=== PATIENT | male | born 1955 | race Caucasian/White ===

== ENCOUNTER 2017-02-17 06:57 | Emergency (ER) | payer SELFPAY ==
[2017-02-17] MEDS ORDERED: NITROGLYCERIN 0.4 MG TAB.SUBL SUBLINGUAL ONE (07:24)
[2017-02-17 07:25] LABS: BASOPHIL# 0.1 X 10^3uL (0.0-0.1); BASOPHILS 0.8 % (0.0-2.0); EOSINOPHILS 3.5 % (0.0-6.0); EOSINOPHILS# 0.3 X 10^3uL (0.0-0.4); HEMATOCRIT 50.3 % (42.0-54.0); HEMOGLOBIN 17.5 g/dL (14.0-18.0); LYMPHOCYTES 30.2 % (20.0-40.0); LYMPHOCYTES# 2.2 X 10^3uL (0.8-3.8); MEAN CELL VOLUME 86.7 fL (80.0-100.0); MEAN CORPUS. HGB CONCENTRATION 34.9 g/dL (32.0-36.0); MEAN CORPUSCULAR HEMOGLOBIN 30.3 pg (29.0-35.0); MEAN PLATELET VOLUME 8.7 fL (7.4-10.4); MONOCYTES 7.6 % (2.0-10.0); MONOCYTES# 0.6 X 10^3uL (0.2-1.0); NEUTROPHILS 57.9 % (54.0-75.0); NEUTROPHILS# 4.1 X 10^3uL (2.6-6.7); PLATELET COUNT 230 X 10^3uL (130-440); RED BLOOD COUNT 5.79 X 10^6uL (4.20-6.10); RED CELL DISTRIBUTION WIDTH 12.1 % (11.5-14.5); WHITE BLOOD COUNT 7.4 X 10^3uL (3.9-10.7)
[2017-02-17 07:31] LABS: BLOOD UREA NITROGEN 21 mg/dL (9-20); CALCIUM 10.3 mg/dL (8.4-10.2); CHLORIDE 110 mmol/L (98-107); EST GLOMERULAR FILTRATION RATE > 60 mL/min; GLUCOSE 152 mg/dL (70-100); MAGNESIUM 2.1 mg/dL (1.6-2.3); POTASSIUM 4.3 mmol/L (3.5-5.1); SODIUM 141 mmol/L (137-145)
[2017-02-17 07:45] LABS: TROPONIN I < 0.012 ng/mL (0.00-0.034)
--- NOTE | 2017-02-17 08:35 | RADIOLOGY REPORT ---
A limited single portable view of the chest, without prior films for comparison , demonstrates the heart and vessels to be unremarkable. Lung melgar are clear. No infiltrate, fluid or pneumothorax is seen. IMPRESSION: Unremarkable limited single portable view of the chest. MTDD
[2017-02-17] MEDS ORDERED: HEPARIN SOD PORCINE 5,000 UNITS/ML VIAL ONE (10:38)
[2017-02-17] MEDS ORDERED: HEPARIN SOD PORCINE IV ONE (10:39)
[2017-02-17] MEDS ORDERED: D5W IV ONE (10:39)
--- NOTE | 2017-02-17 11:11 | ER PHYSICIAN DOCUMENTATION ---
Physician Documentation [facility] Name:Wolfgang Bishop Age:61 yrs Sex:Male :1955 Arrival Date:02/17/2017 Time:06:57 BedTrauma-C Private MD:Russell Graff ED, John Disposition: 02/17/17 10:47 Transfer ordered to [facility]. Diagnosis is Myocardial Infarction - non ST elevation. - Reason for transfer: Specialty. - Accepting physician is Dr. Alfaro. - Condition is Serious. - Problem is new. - Symptoms are unchanged. COBRA Form completed? Yes Transfer - Mode of Transportation Ambulance HPI: 02/17 07:38 This 61 yrs old Male presents to ER via Private Vehicle with complaints of jm Chest Pain. 07:38 The patient or guardian reports chest pain that is located primarily in the substernal jm area. Onset: 6 month(s) ago, and became worse today, yesterday. The pain radiates to both arms. There has been no movement of pain. Associated signs and symptoms: Pertinent positives: dizziness, shortness of breath. The chest pain is described as a heaviness, a pressure. Duration: The patient or guardian reports a single episode, that is still ongoing, but improving. Modifying factors: the symptoms are aggravated by exertion. Severity of pain: in the emergency department the pain is a 7 / 10. Risk factors for coronary artery disease include: This patient has a family history of coronary artery disease. The patient has experienced similar episodes in the past. The patient has not recently seen a physician. Pt's had on and off CP for the past 6 months always set off by exertion . Historical: - Allergies: No known drug Allergies; - Home Meds: 1. Flomax Oral - PMHx: BPH; Hernia- no surgery yet; - PSHx: Appendectomy; - Tetanus: < 10 years. - Ebola Screening: : Patient negative for fever greater than or equal to 101.5 degrees Fahrenheit, and additional compatible Ebola Virus Disease symptoms. Patient denies exposure to infectious person. Patient denies travel to an Ebola-affected area in the 21 days before illness onset. No symptoms or risks identified at this time. . - Family history: Father has/had cardiac disorder, Brother has/had cardiac disorder. - Immunization history: Flu Vaccine unknown. - Social history: Smoking status: Patient states was never smoker of tobacco. ROS: 07:44 Constitutional: Negative for fatigue, fever. jm 07:44 ENT: Negative for rhinorrhea, sinus congestion, sinus pain, sore throat. 07:44 Neck: Negative for swelling, acute changes. 07:44 Cardiovascular: Positive for chest pain. 07:44 Respiratory: Positive for shortness of breath. 07:44 Abdomen/GI: Negative for abdominal pain, nausea, vomiting, diarrhea. 07:44 Back: Negative for pain with movement, radiated pain. 07:44 MS/extremity: Negative for rash, swelling. 07:44 Skin: Negative for rash, swelling. 07:44 Neuro: Negative for dizziness, numbness. 07:44 Psych: Negative for drug dependence, alcohol dependence. 07:44 All other systems are negative. Exam: 07:46 Constitutional: The patient appears alert, awake, obese. 07:46 Eyes: Periorbital structures: appear normal, Conjunctiva: normal. 07:46 ENT: Mouth: is normal, Dental exam: normal. 07:46 Neck: Thyroid: appears normal, Trachea: is midline with no obvious abnormalities. 07:46 Cardiovascular: Rate: normal, Rhythm: regular. 07:46 Respiratory: Respirations: normal, Breath sounds: are normal. 07:46 Abdomen/GI: Bowel sounds: normal, Palpation: abdomen is soft and non-tender. 07:46 Musculoskeletal/extremity: Pulses: are normal with no appreciated deficits, Sensation intact. 07:46 Skin: Appearance: Color: pink, no rash present. 07:46 Neuro: Mentation: is normal, Memory: is normal. 07:46 Psych: Behavior/mood is pleasant, cooperative, Affect is calm. Vital Signs: 07:00 BP 166 / 96 (auto/); tg 07:00 Pulse 86 MON; Resp 13; Pulse Ox 95% ; Weight 106.14 kg; Height 5 ft. 11 in. (180.34 tg cm); Pain 3/10; 07:26 Pain 1/10; tg 07:30 BP 136 / 87 (auto/); tg 07:36 Pulse 83 MON; Resp 22; Pulse Ox 92% ; tg 08:00 BP 127 / 73 (auto/); tg 08:01 Pulse 79 MON; Resp 15; Pulse Ox 92% ; tg 08:11 Pain 0/10; tg 10:00 BP 135 / 79 (auto/); tg 10:01 Pulse 64 MON; Resp 18; Pulse Ox 92% ; tg 10:43 BP 164 / 97 (auto/); tg 10:46 Pulse 73 MON; Resp 18; Pulse Ox 94% ; tg 11:01 BP 165 / 79 (auto/); tg 11:01 Pulse 74 MON; Resp 14; Pulse Ox 95% ; tg 07:00 Body Mass Index 32.64 (106.14 kg, 180.34 cm) tg MDM: 07:26 Patient medically screened. jm 10:42 Differential diagnosis: acute myocardial infarction, anxiety, stable angina. Patient hari took aspirin in the Emergency Department. Data reviewed: vital signs, nurses notes, lab test result(s), EKG, radiologic studies, and as a result, I will *Transfer Patient. Test interpretation: by ED physician or midlevel provider: plain radiologic studies, ECG. Counseling: I had a detailed discussion with the patient and/or guardian regarding: the historical points, exam findings, and any diagnostic results supporting the discharge/admit diagnosis, lab results, radiology results, the need to transfer to another facility. ECG:. Medication response: The patient's symptoms have improved, Nitro x 1 relieved pain. Physician consultation: Annalee Martinez regarding patient's condition, need to come to ED to see patient, and will see patient immediately, after a discussion of the case, a recommendation for transfer for higher level of care is made, would like further tests performed, echocardiogram, Pt's 2nd trop came back positive. Dr. Martinez would like transfer to [facility] for a cath. . 11:10 EKG attached 02/17 07:27 Order name: CBC AUTO DIF, MDIF/RMOR IF IND; Complete Time: 07:49 EDMS 02/17 07:46 Order name: BASIC METABOLIC PANEL; Complete Time: 07:49 EDMS 02/17 07:46 Order name: MAGNESIUM; Complete Time: 07:49 EDMS 02/17 07:46 Order name: TROPONIN I; Complete Time: 07:49 EDMS 02/17 10:21 Order name: TROPONIN I; Complete Time: 10:24 EDMS 02/17 09:09 Order name: CHEST; SINGLE VIEW [id number]; Complete Time: 10:24 EDMS 02/17 07:08 Order name: 12-lead EKG; Complete Time: 07:09 tg 02/17 07:08 Order name: Iv Saline Lock; Complete Time: 07: tg 02/17 07:08 Order name: Place Patient On Monitor; Complete Time: : tg 02/17 07:08 Order name: Pulse Ox Continuous; Complete Time: 07: tg EC:42 Rhythm is regular. QRS [place] is Normal. AL interval is normal. QRS interval is normal. jm QT interval is normal. Q waves are Present in leads II, III, aVF. No ST changes noted. Dispensed Medications: 07:12 Drug: Aspirin 81 mg, 4 tabs, total of 324 mg - Aspirin 81 mg; Route: PO; tg 07:23 Follow up: Response: No adverse reaction tg 07:19 Drug: Nitroglycerin 0.4 mg; Route: Sublingual; tg 07:26 Follow up: Pain 1/10 Adult; Response: Pain is decreased; Pain had increassed to 7/10 tg right at the time of administration of nitro SL 10:45 Drug: heparin 60 units/kg; Route: IVP; Site: right antecubital; lpr 10:49 Drug: heparin 12 units/kg/hr; Route: IV; Rate: calculated rate; Site: right antecubital;lpr Signatures: Brennen Perez RN RN tg Malena Bianchi RN RN nf Meyer, John, MD MD jm Roberts, Leslie, RN RN lpr
--- NOTE | 2017-02-17 11:11 | ER NURSING DOCUMENTATION ---
Nurse's Notes [facility] Name:Wolfgang Bishop Age:61 yrs Sex:Male :1955 Arrival Date:02/17/2017 Time:06:57 BedTrauma-C Private MD:Russell Graff Diagnosis:Myocardial Infarction - non ST elevation Presentation: 02/17 07:07 Acuity: ARELIS 2 tg 07:10 Notified ED Physician of patient's arrival and CC Que Zamora notified. tg 07:15 Presenting complaint: Patient states: midsternal chest pain, burning, began 45 min ago. tg Off and on for the past week. Tingling hands, slight SOB, felt sweaty SPEECH LANGUAGE PATHOLOGIST TRAVEL. Transition of care: patient was not received from another setting of care. AIR CAT ACTIVATION no. Asprin Given Given in ED. 07:15 Method Of Arrival: Private Vehicle tg Triage Assessment: 07:21 General: Appears in no apparent distress, Behavior is cooperative. Pain: Complains of tg pain in mid-sternal area Quality of pain is described as burning, Pain began 1 hour ago Is episodic. Neuro: Level of Consciousness is awake, alert. Cardiovascular: Capillary refill < 3 seconds Rhythm is sinus rhythm. Respiratory: Respiratory effort is even, unlabored. GI: Denies nausea. Derm: Skin is pink, warm & dry. Musculoskeletal:. Historical: - Allergies: No known drug Allergies; - Home Meds: 1. Flomax Oral - PMHx: BPH; Hernia- no surgery yet; - PSHx: Appendectomy; - Tetanus: < 10 years. - Ebola Screening: : Patient negative for fever greater than or equal to 101.5 degrees Fahrenheit, and additional compatible Ebola Virus Disease symptoms. Patient denies exposure to infectious person. Patient denies travel to an Ebola-affected area in the 21 days before illness onset. No symptoms or risks identified at this time. . - Family history: Father has/had cardiac disorder, Brother has/had cardiac disorder. - Immunization history: Flu Vaccine unknown. - Social history: Smoking status: Patient states was never smoker of tobacco. Screenin:23 Infectious Disease Risk Unable to Obtain. Abuse screen: Denies threats or abuse. Denies tg injuries from another. Nutritional screening: No deficits noted. Assessment: 08:09 Reassessment: Per Dr. Grey, pt may leave the ED for about 45 minutes to get his cell tg phone. Pt is pain free, symptom free, and has been instructed to call 911 if symptoms return. Pt verbalized understanding. . 09:00 Reassessment: Pt is back in ED trauma C, no symptoms or complaints. Pt reports he did tg have another small amount of pain while ambulating. . 09:42 Reassessment: denies needs, awaiting stress test. nf 10:22 Reassessment: elevated repeat troponin result received from lab; Dr Grey notified of tg result and cardiology clinic notified of result and stress test cancelled. Vital Signs: 07:00 BP 166 / 96 (auto/); tg 07:00 Pulse 86 MON; Resp 13; Pulse Ox 95% ; Weight 106.14 kg; Height 5 ft. 11 in. (180.34 tg cm); Pain 3/10; 07:26 Pain 1/10; tg 07:30 BP 136 / 87 (auto/); tg 07:36 Pulse 83 MON; Resp 22; Pulse Ox 92% ; tg 08:00 BP 127 / 73 (auto/); tg 08:01 Pulse 79 MON; Resp 15; Pulse Ox 92% ; tg 08:11 Pain 0/10; tg 10:00 BP 135 / 79 (auto/); tg 10:01 Pulse 64 MON; Resp 18; Pulse Ox 92% ; tg 10:43 BP 164 / 97 (auto/); tg 10:46 Pulse 73 MON; Resp 18; Pulse Ox 94% ; tg 11:01 BP 165 / 79 (auto/); tg 11:01 Pulse 74 MON; Resp 14; Pulse Ox 95% ; tg 07:00 Body Mass Index 32.64 (106.14 kg, 180.34 cm) tg ED Course: 06:58 Patient arrived in ED. ds 06:58 Russell Graff DO is Private Physician. ds 06:58 EKG done. (by ED staff). Reviewed by Jon Grey MD. tg 07:04 Inserted saline lock: 20 gauge in right antecubital area and blood collected. em1 07:07 Triage completed. tg 07:10 Port Xray Completed. sav 07:22 Arm band placed on. tg 07:23 Valuables Remains with patient. bus driver/monitor on. Pulse ox on. NIBP On - RN tg Monitoring Only. Verbal reassurance given. Pillow given. 07:26 Jon Grey MD is Attending Physician. hari 09:35 Labs drawn. (by ED staff). Sent per order to lab. repeat troponin. nf 09:58 Brennen Perez, RN is Primary Nurse. tg 11:10 EKG attached nf Administered Medications: 07:12 Drug: Aspirin 81 mg, 4 tabs, total of 324 mg - Aspirin 81 mg; Route: PO; tg 07:23 Follow up: Response: No adverse reaction tg 07:19 Drug: Nitroglycerin 0.4 mg; Route: Sublingual; tg 07:26 Follow up: Pain 1/10 Adult; Response: Pain is decreased; Pain had increassed to 7/10 tg right at the time of administration of nitro SL 10:45 Drug: heparin 60 units/kg; Route: IVP; Site: right antecubital; lpr 10:49 Drug: heparin 12 units/kg/hr; Route: IV; Rate: calculated rate; Site: right antecubital;lpr Intake: Outcome: 10:47 ER care complete, transfer ordered by . jm 11:11 Patient left the ED. nf Signatures: Brennen Perez, RN RN Malena Bianchi RN RN nf Srot, Aminata, Reg Reg ds Jon Grey MD MD jm Roberts, Leslie, RN RN lpr Katya Alvares [facility], [facility] em1
== END 2017-02-17 11:11 | disposition short-term general hospital (02) ==
LOC: ER 06:57
DX: I21.4 Non-ST elevation (NSTEMI) myocardial infarction (principal); R06.02 Shortness of breath; R42 Dizziness and giddiness; Z82.49 Family history of ischemic heart disease and other diseases of the circulatory system; Z99.89 Dependence on other enabling machines and devices; Z74.3 Need for continuous supervision
CPT/HCPCS: 71010; 80048; 83735; 84484; 85025; 93005; 93308; 96374; 99285; A0425; A0426; J1644

== ENCOUNTER → 2017-02-26 | Emergency (ER) | payer SELFPAY ==
[~2017-02-26] MED LIST: ACETAMINOPHEN 325 MG TABLET PO PRN; BENZONATATE 100 MG CAPSULE PO PRN; DILTIAZEM HCL 125 MG/25 ML VIAL IV ONE; ENOXAPARIN SODIUM 40 MG/0.4 ML SYR SUBCUT SCH; GUAIFENESIN ER 600 MG TABLET PO SCH; HOME MEDICATION LIST NEEDED 1 EA EACH MC ONE; IPRATROPIUM/ALBUTEROL 0.5/3 MG 3 ML AMPUL.NEB INHALATION PRN; LEVALBUTEROL 1.25 MG/3 ML VIAL.NEB INHALATION PRN; LORazepam 0.5 MG TABLET PO PRN; MAG-AL PLUS XS SUSP 30 ML UDC PO PRN; NORMAL SALINE 1,000 ML IV SCH; NORMAL SALINE 100 ML IV ONE; POLYETHYLENE GLYCOL 3350 17 GM POWD.PACK PO PRN; TUSSIONEX PENNKINETIC SUSP 5 ML UDC ONE
[2017-02-26 18:31] LABS: BASOPHIL# 0.2 X 10^3uL (0.0-0.1); BASOPHILS 1.3 % (0.0-2.0); EOSINOPHILS 2.7 % (0.0-6.0); EOSINOPHILS# 0.5 X 10^3uL (0.0-0.4); HEMATOCRIT 40.4 % (42.0-54.0); HEMOGLOBIN 14.1 g/dL (14.0-18.0); LYMPHOCYTES# 2.2 X 10^3uL (0.8-3.8); MEAN CELL VOLUME 87.7 fL (80.0-100.0); MEAN CORPUS. HGB CONCENTRATION 34.9 g/dL (32.0-36.0); MEAN CORPUSCULAR HEMOGLOBIN 30.6 pg (29.0-35.0); MEAN PLATELET VOLUME 8.4 fL (7.4-10.4); MONOCYTES 7.5 % (2.0-10.0); MONOCYTES# 1.4 X 10^3uL (0.2-1.0); NEUTROPHILS# 14.2 X 10^3uL (2.6-6.7); PLATELET COUNT 332 X 10^3uL (130-440); RED CELL DISTRIBUTION WIDTH 12.4 % (11.5-14.5); WHITE BLOOD COUNT 18.5 X 10^3uL (3.9-10.7)
--- NOTE | 2017-02-26 18:32 | RADIOLOGY REPORT ---
HISTORY: Shortness of breath. TECHNIQUE: One view of the chest is submitted. There is no prior study available for comparison. FINDINGS: Sternotomy wires are seen at the midline. Current exam is acquired at low lung volumes, limiting evaluation of the cardiac and mediastinal silh ouettes. The costophrenic recesses are sharp. Lungs show left basilar interstitial opacity. There is no significant pneumothorax. Soft tissues and visualized osseous structures are intact. IMPRESSION: 1. Hypoventilatory change, with left basilar consolidation. Follow-up is recommended. Final Electronic Signature: This report was electronically signed by Martín Fiore MD on 02/26/2017 6: 29 PM. shumes /
[2017-02-26 18:33] LABS: INR 1.1
[2017-02-26 18:34] LABS: ALBUMIN 4.2 g/dL (3.5-5.0); ALKALINE PHOSPHATASE 78 U/L (38-126); ALT 69 U/L (21-72); AST 46 U/L (17-59); BILIRUBIN, DIRECT 0.5 mg/dL (0.0-0.4); BILIRUBIN, TOTAL 1.6 mg/dL (0.2-1.3); BLOOD UREA NITROGEN 21 mg/dL (9-20); CALCIUM 10.5 mg/dL (8.4-10.2); CHLORIDE 102 mmol/L (98-107); EST GLOMERULAR FILTRATION RATE > 60 mL/min; GLUCOSE 124 mg/dL (70-100); MAGNESIUM 2.5 mg/dL (1.6-2.3); POTASSIUM 4.4 mmol/L (3.5-5.1); SODIUM 135 mmol/L (137-145); TOTAL PROTEIN 7.7 g/dL (6.3-8.2)
[2017-02-26 18:45] LABS: NEUTROPHILS 76.5 % (54.0-75.0); TROPONIN I 0.027 ng/mL (0.00-0.034)
[2017-02-26 18:50] LABS: FREE T4 1.77 ng/dL (0.78-2.19)
--- NOTE | 2017-02-26 19:35 | CT REPORT ---
HISTORY: Chest pain and shortness of breath. Recent thoracotomy. COMPARISON: Chest x-ray February 26, 2017. TECHNIQUE: This examination was performed using automated exposure control, adjustment of mA or kV according to patient size, and/or use of iterative reconstruction technique. Axial CT imaging from the thoracic i nlet through the upper abdomen following administration of IV contrast during peak opacification of t he pulmonary arteries, multiplanar reformatted and 3-D images are evaluated. 100cc Isovue 370 contrast. FINDINGS: There are bibasilar infiltrates and a small left-sided effusion. There is also very small left apical pneumothorax. Likely postsurgical. The patient is status post recent thoracotomy with postoperative changes in the superior mediastinum. No pathologic lymphadenopathy or pericardial effusion. No pulmonary embolus identified. No thyroid mass or hiatal hernia. IMPRESSION: 1. Status post recent thoracotomy. Small postoperative left apical pneumothorax. 2. Small bibasilar infiltrates and a small left pleural effusion. Final Electronic Signature: This report was electronically signed by Ryan Mckeon MD on 02/26/2017 7:33 PM. sross /
--- NOTE | 2017-02-26 21:38 | HISTORY AND PHYSICAL ---
PROVIDER: Date of Admission: Admitting Provider: Attending Provider: Primary Care Provider: CHIEF COMPLAINT: Shortness of breath with irregular heart rate HISTORY OF PRESENT ILLNESS: This is history and physical as well as transfer summary for patient. Mr. Bishop is a 61 yo M who recently was admitted to [facility] with unstable angina and underwent CABG x5 on 02/19/[address] Thakkar. He had a relatively uncomplicated postoperative course and was discharged to home on post op day # 5. Patient has been home for one day and doing relatively well. Today however he noted to have some increased pain that the hydrocodone was not helping- he contacted nursing and was suggested to increase dose. this afternoon however he had a significant coughing spell trying to get rid of some mucous plugging. this in turn sent his heart into irregular fast heart rate. Due to the heart irregularity and shortness of breath he came into emergency department for further evaluation. On arrival to ED patient was noted to be in atrial fibrillation he was given cardizem bolus and transitioned back to sinus rhythm. After this conversion and when I came to evaluation patient he was having respiratory distress and trying to clear a mucous plug. With recent bypass he has significant pain with position changes and coughing and thus difficulty clearing the secretion. We readjusted position and patient did cough out a white thick mucous. In the time however that patient has been in emergency room- his respiratory rate continues to increase and he continues to struggle to clear his mucous secretions. Discussion with available nursing staff and with our lack of respiratory therapy on the weekends, we are concerned for appropriate monitoring of patient especially if progresses to worsening respiratory distress. PAST MEDICAL HISTORY: CAD with high risk unstable angina, s/p CABG x5 on 02/19/17 Acute pain related to recent surgery HTN HPL Atelectasis Hypoxia TIFFANY GERD PreDiabetes (a1c 5.8 6.29.17) BPH Leukocytosis Obesity PAST SURGICAL HISTORY: CABG x5 02/19/17 Appendectomy T+A Tympanostomy tube Vasectomy SOCIAL HISTORY: Remote smoker FAMILY HISTORY: Father- CAD Brother- DM Cousin- recently [place] MEDICATIONS: Atorvastatin 80mg Furosemide 20mg guaifenesin Hydrocodone-apap 1-2 q6h prn metoprolol 25mg bid nitroglycerin 0.4 mg SL KCL 10mEq ASA 81mg Ca/Vit D Finasteride 5mg Magnesium Tamsulosin 0.4mg Tylenol pm Vitamin B12 Zinc ALLERGIES: NKDA REVIEW OF SYSTEMS: GENERAL: Sweating, Fatigue/malaise SKIN:bruising HEENT: No headache NECK: No neck pain RESPIRATORY: Increased mucous, shortness of breath, cough CARDIOVASCULAR: chest pain from surgery, irregular heart rate- no improved GASTROINTESTINAL: constipation GENITOURINARY: No dysuria MUSCULOSKELETAL: Muscle spasm/pain NEUROLOGICAL:No headache/no weakness PSYCHIATRIC: Anxious regarding ability to breath ENDOCRINE: HEMATOLOGY: bruising VITAL SIGNS: BP 158/89 HR 94, RR 38, 95% 2l- after coughing up mucous plug RR improved to 20 -25 PHYSICAL EXAMINATION: GENERAL: Patient appears anxious and in respiratory distress INTEGUMENTARY: recent surgical scar incisions, bruising on abdomen and left leg HEAD AND NECK: NCAT EYE:Pupils reactive ENMT: OP clear CHEST AND LUNG:increased respiratory rate, pursed lip breathing at times with slight retractions, difficult to speak in complete sentence due to respiratory distress, crackles bilaterally with decreased lung sounds bilateral bases CARDIOVASCULAR: Nml S1 S2 ABDOMEN: Obese, soft, nt PERIPHERAL VASCULAR: trace edema, dorsalis pedis pulses 2+ bilaterally, significant ecchymosis inner aspect of left thigh/calf NEUROLOGIC: CN II-XII grossly intact MUSCULOSKELETAL: moves all extremities equally NEUROPSYCHIATRIC: Anxious, especially with increased respiratory distress Assessment and Plan - Date of Encounter Date of Encounter: 02/26/17 Patient was seen and evaluated in emergency room with attempt to admit for observation here at [facility]. Unfortunately Vicente continued to have progressive respiratory distress and tachypnea that we felt he was not safe for monitoring overnight here at our facility without appropriate respiratory and cardiac support. After discussion with patient and hospitalist, he is agreeable to transfer, obviously upset regarding set back in progress however. (1) Respiratory distress Status: Acute Assessment and plan: Patient has progressive had more respiratory distress this afternoon evening related to mucous plugging. CXR with hypoventilation changes and left basilar consolitation and CT with small post op pneumothorax, small bibasilar infiltrate /left pleural effusion. Do not have imaging from [facility] to compare. With recent CABG he is not taking full deep breath due to pain- I did call Dr. May to review case and suggested trial of neb/cough suppressant but unfortunately symptoms continued to worsen and respiratory rate continued to increase. Attempted symptom control but unable to calm patient and help clear secretions- feels he needs respiratory therapy and higher level of care for monitoring purposes. Discussed case with Dr. Ruiz and he graciously accepted patient for further monitoring and managment. Current Visit: Yes (2) Mucus plugging of bronchi Status: Acute Assessment and plan: s/p CABG- no with worsening respiratory distress. Does have small infiltrates on CT and leukocytosis- ?potential post op pneumonia. Has been afebrile thus far- no cultures done here. consider sputum culture/gram stain and potential antibiotics pending results/follow up. Patient needs more aggressive pulmonary toilet and we cannot provide this support here in [place]. Transfer. Current Visit: Yes (3) Paroxysmal atrial fibrillation Status: Acute Assessment and plan: Likely related to some underlying dehydration/coughing spell and recent CABG. Cardizem 20mg with drip converted to sinus, now off medication with HR 90s. Is currently on BB post op (likely did not get evening dose however). ASA. Current Visit: Yes (4) S/P CABG (coronary artery bypass graft) Status: Acute Current Visit: Yes (5) CAD (coronary artery disease) Status: Acute Qualifiers: Coronary Disease-Associated Artery/Lesion type: bypass graft Assessment and plan: CABG x 5 on 02/19. with recent post op and history- transferring back to [facility] for further monitoring and management. Current Visit: Yes (6) HTN (hypertension) Status: Chronic Qualifiers: Hypertension type: essential hypertension Qualified Code(s): I10 - Essential (primary) hypertension Assessment and plan: Slightly elevated in ED from previous baseline. likely to need additional medication adjustments. Current Visit: Yes (7) Leukocytosis Status: Acute Assessment and plan: Was felt to be post op with previous max elevation of 17.9 prior to discharge. Now back up to 18.5. With respiratory distress and imaging, consider potential infectious cause. No cultures done at this time (afebrile, lactic acid normal) Current Visit: Yes - Time Spent With Patient Total time spent with greater than 50% in coordination of care (as documented) at patient's floor/unit and/or counseling patient: Greater than 35 minutes Estimated anticipated discharge: Transferred from ED to [facility]
--- NOTE | 2017-02-26 22:34 | ER PHYSICIAN DOCUMENTATION ---
Physician Documentation [facility] Name:Wolfgang Bishop Age:61 yrs Sex:Male :1955 Arrival Date:02/26/2017 Time:18:02 BedTrauma-C Private MD:Russell Graff ED, Scott Disposition: 02/26/17 19:54 Admit ordered for Starr Welch. Preliminary diagnosis is Atrial Fibrillation. - Bed requested for Medical/Surgical. - Condition is Serious. - Problem is new. - Symptoms have improved. 23 HR OBS Yes HPI: 02/26 18:13 This 61 yrs old Male presents to ER with complaints of Irregular Pulse. be 18:13 The patient presents with a history of irregular heart beat. Context: The symptoms be occur one week post-op CABG x5. Onset: The symptom(s)/episode began/occurred acutely, just prior to arrival. Modifying factors: The symptoms are aggravated by nothing. The symptoms are alleviated by nothing. Associated signs and symptoms: Pertinent positives: SOB. Severity of symptoms: in the emergency department the symptoms are unchanged. Historical: - Allergies: No known drug Allergies; - Home Meds: 1. Flomax Oral 2. atorvastatin 80 mg oral tab 1 tab once daily 3. Lasix Oral 4. Guaifenesin Oral 5. Hydrocodone-Acetaminophen 5-325 mg Oral 6. Metoprolol Tartrate Oral 7. NTG SL 8. Potassium Chloride Oral 9. aspirin 81 mg oral tab 1 tab once daily 10. finasteride oral 11. Home O2 12. Magnesium Oxide Oral 13. tamsulosin oral - PMHx: BPH; Hernia- no surgery yet; Myocardial Infarction - non ST elevation (February 17, 2017); - PSHx: APPENDECTOMY; - Tetanus: < 10 years. - Ebola Screening: : Patient negative for fever greater than or equal to 101.5 degrees Fahrenheit, and additional compatible Ebola Virus Disease symptoms. Patient denies exposure to infectious person. Patient denies travel to an Ebola-affected area in the 21 days before illness onset. No symptoms or risks identified at this time. . - Social history: Smoking status: unknown if patient ever smoked tobacco. Patient/guardian denies using alcohol, street drugs, marijuana. - Immunization history: Pneumococcal vaccine status is unknown, Flu Vaccine unknown. ROS: 18:14 Cardiovascular: Positive for CABG x5 one week ago at [facility]. be 18:14 All other systems are negative. Exam: 18:14 Abdomen/GI: Soft, non-tender, with normal bowel sounds. No distension or tympany. No be guarding or rebound. No evidence of tenderness throughout. Multiple ecchymotic lesions c/w lovenox injection sites MS/ Extremity: Pulses equal, no cyanosis. Neurovascular intact. Full, normal range of motion. LLE vein harvest sites and ecchymotic lesions/contusions 18:14 Neuro: Awake and alert, GCS 15, oriented to person, place, time, and situation. be Cranial nerves II-XII grossly intact. Motor strength 3/5 in all extremities. Sensory grossly intact. Cerebellar exam normal. Gait not assessed. 18:14 Cardiovascular: Rate: tachycardic, Rhythm: irregularly irregular, Heart sounds: normal, Edema: 2+ edema to level of left midcalf, left ankle, left foot and left toes. 18:14 Respiratory: Respirations: labored breathing, that is mild, accessory muscle usage, that is mild, Breath sounds: decreased breath sounds, are located in both bases. Vital Signs: 18:04 BP 150 / 78 (auto/); sc1 18:06 Pulse 165 MON; Resp 32; sc1 18:20 BP 159 / 131 (auto/); sc1 18:21 Pulse 157 MON; Resp 36; Pulse Ox 95% ; sc1 18:26 BP 127 / 80 (auto/); sc1 18:26 Pulse 117 MON; Resp 42; Pulse Ox 90% ; sc1 18:30 BP 136 / 70 (auto/); sc1 18:31 Pulse 110 MON; Resp 31; Pulse Ox 91% ; sc1 19:26 BP 127 / 77 (auto/); sc1 19:26 Pulse 137 MON; Resp 28; Pulse Ox 91% ; sc1 19:30 BP 128 / 77 (auto/); sc1 19:31 Pulse 90 MON; Resp 24; Pulse Ox 93% ; sc1 19:50 BP 150 / 72 (auto/); sc1 19:51 Pulse 87 MON; Resp 22; Pulse Ox 92% ; sc1 20:50 BP 118 / 72 (auto/); sc1 20:51 Pulse 89 MON; Resp 30; Pulse Ox 93% ; sc1 21:20 BP 151 / 89 (auto/); sc1 21:21 Pulse 99 MON; Resp 38; Pulse Ox 95% ; sc1 22:02 BP 161 / 63; Pulse 90; Resp 18; Pulse Ox 94% ; bw2 MDM: 18:04 Patient medically screened. be 18:20 Differential diagnosis: arrythmia. Data reviewed: vital signs, nurses notes, old be medical records, lab test result(s), EKG, radiologic studies, and as a result, I will Cardizem bolus and infusion. 18:21 ECG:. be 19:53 Physician consultation: Starr Welch DO was called at 19:53, was contacted at 19:53, ca regarding admission. 21:11 EKG attached [facility] 02/26 18:36 Order name: PROTIME/INR [facility] 02/26 18:56 Interpretation: Normal. 02/26 18:38 Order name: LACTATE; Complete Time: 18:58 [facility] 02/26 18:56 Interpretation: Normal. 02/26 18:38 Order name: BASIC METABOLIC PANEL [facility] 02/26 18:57 Interpretation: Normal Except: mild hyperglycemia, mild hyponatremia. 02/26 18:38 Order name: MAGNESIUM [facility] 02/26 18:57 Interpretation: Normal Except: elevated magnesium. 02/26 18:38 Order name: HEPATIC PANEL [facility] 02/26 18:58 Interpretation: Normal Except: mildly elevated bilirubin. 02/26 18:46 Order name: CBC AUTO DIF, MDIF/RMOR IF IND EDDC 02/26 18:58 Interpretation: Normal Except: Leukocytosis with left shift and polycythemia. 02/26 18:48 Order name: TROPONIN I [facility] 02/26 18:58 Interpretation: Normal. 02/26 18:54 Order name: FREE T4 [facility]DC 02/26 18:58 Interpretation: Normal. 02/26 18:56 Order name: DDIMER; Complete Time: 19:46 [facility]DC 02/26 19:46 Interpretation: Abnormal. ca 02/26 19:06 Order name: THYROID STIMULATING HORMONE; Complete Time: 19:30 EDDC 02/26 19:30 Interpretation: Abnormal: THYROID STIMULATING HORMONE 5.80. ca 02/26 18:34 Order name: CHEST; SING[place]IEW [id number]; Complete Time: 18:58 EDDC 02/26 Interpretation: post-op changes. ca 02/26 19:37 Order name: CAT SCAN; CHEST ANGIO [id number]; Complete Time: 19:46 EDMS 02/26 Interpretation: Normal Except: basilar atelectatic changes. ca 02/26 18:08 Order name: 12-lead EKG; Complete Time: 18:37 be 02/26 18:08 Order name: Iv Saline Lock; Complete Time: 18:37 be 02/26 18:08 Order name: Place Patient On Monitor; Complete Time: 18:37 be 02/26 18:08 Order name: Pulse Ox Continuous; Complete Time: 18:37 be 02/26 18:37 Order name: Oxygen; Complete Time: 18:37 sc1 EC:21 Rate is 151 beats/min. Rhythm is irregularly irregular, A fib. QRS [place] is Normal. PA be interval is normal. QRS interval is normal. QT interval is normal. No Q waves. T waves are Normal. No ST changes noted. Clinical impression: Abnormal EKG without significant change. Interpreted by me. Reviewed by me. Dispensed Medications: Completed: Cardizem 10 mg/hr IV at calculated rate Per protocol; PRN HR>100, SBP>100 titrate q 20 min by 5 mg/hr. Max 20 mg/hr 18:25 Drug: Cardizem 20 mg; Route: IVP; Site: right antecubital; ca1 22:18 Follow up: Response: No adverse reaction bw2 18:37 Drug: Cardizem 10 mg/hr; Route: IV; Rate: calculated rate; Site: right antecubital; ca1 Delivery: [place] [facility]; 21:02 Follow up: IV Status: Infusion discontinued; IV Intake: 64ml [facility] 21:30 Drug: Tussionex - HYDROcodone-Homatropine Liquid 5ml 5 ml; Route: PO; sc1 22:18 Follow up: Response: No adverse reaction bw2 Signatures: Astrid Rodríguez RN RN [facility] Fox Vaughn MD MD ca Get Vasquez MD MD Pam Pollack bw2
--- NOTE | 2017-02-26 22:34 | ER NURSING DOCUMENTATION ---
Nurse's Notes [facility] Name:Wolfgang Bishop Age:61 yrs Sex:Male :1955 Arrival Date:02/26/2017 Time:18:02 BedTrauma-C Private MD:Russell Graff Diagnosis:Atrial Fibrillation Presentation: 02/26 18:09 Acuity: ARELIS 2 sc1 22:04 Presenting complaint: Patient states: he feel like his heart is racing. denies chest 2 pi. Transition of care: patient was not received from another setting of care. 22:04 Method Of Arrival: Walk In [facility] Triage Assessment: 18:38 General: Appears in no apparent distress, well developed, well nourished, well groomed, sc1 Behavior is anxious, pleasant. Pain: Denies pain. Historical: - Allergies: No known drug Allergies; - Home Meds: 1. Flomax Oral 2. atorvastatin 80 mg oral tab 1 tab once daily 3. Lasix Oral 4. Guaifenesin Oral 5. Hydrocodone-Acetaminophen 5-325 mg Oral 6. Metoprolol Tartrate Oral 7. NTG SL 8. Potassium Chloride Oral 9. aspirin 81 mg oral tab 1 tab once daily 10. finasteride oral 11. Home O2 12. Magnesium Oxide Oral 13. tamsulosin oral - PMHx: BPH; Hernia- no surgery yet; Myocardial Infarction - non ST elevation (February 17, 2017); - PSHx: APPENDECTOMY; - Tetanus: < 10 years. - Ebola Screening: : Patient negative for fever greater than or equal to 101.5 degrees Fahrenheit, and additional compatible Ebola Virus Disease symptoms. Patient denies exposure to infectious person. Patient denies travel to an Ebola-affected area in the 21 days before illness onset. No symptoms or risks identified at this time. . - Social history: Smoking status: unknown if patient ever smoked tobacco. Patient/guardian denies using alcohol, street drugs, marijuana. - Immunization history: Pneumococcal vaccine status is unknown, Flu Vaccine unknown. Screenin:39 Infectious Disease Risk None. Abuse screen: Denies threats or abuse. Nutritional sc1 screening: No deficits noted. Assessment: 22:05 See Triage Assessment done by same RN. [facility] Vital Signs: 18:04 BP 150 / 78 (auto/); sc1 18:06 Pulse 165 MON; Resp 32; sc1 18:20 BP 159 / 131 (auto/); sc1 18:21 Pulse 157 MON; Resp 36; Pulse Ox 95% ; sc1 18:26 BP 127 / 80 (auto/); sc1 18:26 Pulse 117 MON; Resp 42; Pulse Ox 90% ; sc1 18:30 BP 136 / 70 (auto/); sc1 18:31 Pulse 110 MON; Resp 31; Pulse Ox 91% ; sc1 19:26 BP 127 / 77 (auto/); sc1 19:26 Pulse 137 MON; Resp 28; Pulse Ox 91% ; sc1 19:30 BP 128 / 77 (auto/); sc1 19:31 Pulse 90 MON; Resp 24; Pulse Ox 93% ; sc1 19:50 BP 150 / 72 (auto/); sc1 19:51 Pulse 87 MON; Resp 22; Pulse Ox 92% ; sc1 20:50 BP 118 / 72 (auto/); sc1 20:51 Pulse 89 MON; Resp 30; Pulse Ox 93% ; az1 21:20 BP 151 / 89 (auto/); az1 21:21 Pulse 99 MON; Resp 38; Pulse Ox 95% ; az1 22:02 BP 161 / 63; Pulse 90; Resp 18; Pulse Ox 94% ; bw2 ED Course: 18:03 Patient arrived in ED. ama 18:03 Russell Graff DO is Private Physician. ama 18:04 Get Vasquez MD is Attending Physician. be 18:04 EKG done per protocol. Performed by ED Staff. Shown to ED physician. Labs ordered per [facility] protocol. X-ray done. 18:08 Astrid Rodríguez, RN is Primary Nurse. az1 18:09 Triage completed. az1 18:17 Port Xray Completed. hz 18:37 Inserted peripheral IV: 18 gauge in right antecubital area and blood collected. bw2 18:[address] Vasquez. Arm band placed on Bed in low position Call Light in [facility] Reach Gowned HOB Elevated Side rails up x2. 19:01 Inserted peripheral IV: 18 gauge in left antecubital area. bw2 19:[address] pm1 19:06 Attending Physician role handed off by Get Vasquez MD az 19:06 Fox Vaughn MD is Attending Physician. az 19:25 Patient moved back from CT. mr 19:53 Starr Welch DO is Admitting Physician. az 21:11 EKG attached sc1 22:05 Valuables Remains with patient Patient has correct armband on for positive bw2 identification. Placed in gown. Bed in low position. Side rails up X2. Administered Medications: Completed: Cardizem 10 mg/hr IV at calculated rate Per protocol; PRN HR>100, SBP>100 titrate q 20 min by 5 mg/hr. Max 20 mg/hr 18:25 Drug: Cardizem 20 mg; Route: IVP; Site: right antecubital; az1 22:18 Follow up: Response: No adverse reaction bw2 18:37 Drug: Cardizem 10 mg/hr; Route: IV; Rate: calculated rate; Site: right antecubital; az1 Delivery: [address] Tubing; 21:02 Follow up: IV Status: Infusion discontinued; IV Intake: 64ml az1 21:30 Drug: Tussionex - HYDROcodone-Homatropine Liquid 5ml 5 ml; Route: PO; sc1 22:18 Follow up: Response: No adverse reaction bw2 Intake: 21:02 IV: 64ml; Total: 64ml. az1 Outcome: 19:54 Decision to Admit by Provider. az 22:02 [facility] Acceptance Time: February 26, 2017 at 20:00 Patient's face sheet was faxed to accepting facility. Face Sheet included patient's name, address, age, gender, contact information and insurance information. Patient [facility] be transported by: [facility] [place]. Nurse and Physician Charting and Notes were sent to Accepting Facility. All tests and/or procedures with results, if applicable, were sent to accepting facility. 22:04 Condition: good bw2 22:04 Instructed on need for transfer bw2 22:33 Transferred: Report called to: Ester CAMILO bw2 22:34 Patient left the ED. bw2 Signatures: Astrid Rodríguez RN RN sc1 Fox Vaughn MD MD az Get Vasquez MD MD be McBride, Philisha pm1 Ravindra Gaspar, Reg Pam Abad bw2 Yoly Arauz Michael mr
== END ==
LOC: ER 18:02
DX: I48.91 Unspecified atrial fibrillation (principal); J80 Acute respiratory distress syndrome; R06.02 Shortness of breath; R06.82 Tachypnea, not elsewhere classified; T17.998A Other foreign object in respiratory tract, part unspecified causing other injury, initial encounter; Z95.1 Presence of aortocoronary bypass graft; R60.0 Localized edema; E87.1 Hypo-osmolality and hyponatremia; E83.41 Hypermagnesemia; D72.829 Elevated white blood cell count, unspecified; D75.1 Secondary polycythemia; R79.1 Abnormal coagulation profile; I25.10 Atherosclerotic heart disease of native coronary artery without angina pectoris; Z79.899 Other long term (current) drug therapy; Z99.89 Dependence on other enabling machines and devices; Z99.81 Dependence on supplemental oxygen; Z74.3 Need for continuous supervision
CPT/HCPCS: 71010; 71275; 80048; 80076; 83605; 83735; 84439; 84443; 84484; 85025; 85379; 85610; 93005; 96365; 96366; 96375; 99285; A0425; A0427

== ENCOUNTER 2017-03-01 04:20 | Emergency (ER) | payer BC ==
[2017-03-01 04:52] LABS: BASOPHIL# 0.1 X 10^3uL (0.0-0.1); BASOPHILS 0.9 % (0.0-2.0); EOSINOPHILS 4.8 % (0.0-6.0); EOSINOPHILS# 0.6 X 10^3uL (0.0-0.4); HEMATOCRIT 36.7 % (42.0-54.0); HEMOGLOBIN 12.6 g/dL (14.0-18.0); LYMPHOCYTES# 2.1 X 10^3uL (0.8-3.8); MEAN CORPUS. HGB CONCENTRATION 34.2 g/dL (32.0-36.0); MEAN CORPUSCULAR HEMOGLOBIN 29.8 pg (29.0-35.0); MEAN PLATELET VOLUME 7.9 fL (7.4-10.4); MONOCYTES 8.6 % (2.0-10.0); MONOCYTES# 1.1 X 10^3uL (0.2-1.0); NEUTROPHILS 69.7 % (54.0-75.0); NEUTROPHILS# 9.2 X 10^3uL (2.6-6.7); PLATELET COUNT 447 X 10^3uL (130-440); RED BLOOD COUNT 4.22 X 10^6uL (4.20-6.10); RED CELL DISTRIBUTION WIDTH 12.1 % (11.5-14.5); WHITE BLOOD COUNT 13.1 X 10^3uL (3.9-10.7)
[2017-03-01] MEDS ORDERED: FUROSEMIDE 20 MG/2 ML VIAL ONE (04:54)
[2017-03-01] MEDS ORDERED: DILTIAZEM HCL 125 MG/25 ML VIAL IV ONE ×2 (04:54→05:17)
[2017-03-01 04:57] LABS: BLOOD UREA NITROGEN 22 mg/dL (9-20); CALCIUM 9.9 mg/dL (8.4-10.2); CHLORIDE 103 mmol/L (98-107); EST GLOMERULAR FILTRATION RATE > 60 mL/min; GLUCOSE 125 mg/dL (70-100); MAGNESIUM 2.4 mg/dL (1.6-2.3); POTASSIUM 4.4 mmol/L (3.5-5.1); SODIUM 134 mmol/L (137-145)
[2017-03-01 05:02] LABS: INR 1.1
[2017-03-01 05:09] LABS: TROPONIN I 0.018 ng/mL (0.00-0.034)
[2017-03-01] MEDS ORDERED: NORMAL SALINE 100 ML IV ONE (05:18)
--- NOTE | 2017-03-01 06:06 | ER PHYSICIAN DOCUMENTATION ---
Physician Documentation [facility] Name:Wolfgang Bishop Age:61 yrs Sex:Male :1955 Arrival Date:03/01/2017 Time:04:20 BedTrauma-C Private MD:Russell Graff ED, Chris Disposition: 03/01/17 05:11 Transfer ordered to [facility]. Diagnosis are Atrial Fibrillation with Rapid Ventricular Response, Pneumonia Bacterial - : LLL, Hypoxia. - Reason for transfer: Higher level of care. - Accepting physician is [facility]. - Condition is Fair. - Problem is an acute exacerbation. - Symptoms have improved. COBRA Form completed? Transfer - Mode of Transportation Ambulance HPI: 03/01 04:41 This 61 yrs old Male presents to ER with complaints of Irregular Pulse. cd 04:41 The patient presents with a history of irregular heart beat, heart racing. Context: The cd symptoms occur at rest, and the patient has a history of Atrial Fibrillation, diagnosed 5 days post-op from a CABG x 5 Vessels. Patient reports he had a five vessel CABG at [facility] 7 days ago. Patient presented to the ED on Wednesday, 3 days ago SOB in Atrial Fibrillation with a rapid ventricular response. He was given Cardizem 20 mg slow IV push and transferred to [facility]. He stayed there this weekend and was discharged in stable condition yesterday afternoon. The Atrial Fibrillation awoke him from sleep at 04:00 AM. His O2 sat was 85% on arrival. Came up to 93% on 2 liters per NC. He denies any chest discomfort.. Onset: The symptom(s)/episode began/occurred acutely, this morning, 45 minute(s) ago. Duration: The patient or guardian reports a single episode, that is still ongoing. Associated signs and symptoms: Pertinent positives: SOB, Pertinent negatives: anxiety, chest pain, fever, lightheadedness, nausea, syncope, vomiting. Severity of symptoms: At their worst the symptoms were moderate in the emergency department the symptoms are unchanged. The patient has experienced a previous episode, approximately 3 days ago. Historical: - Allergies: No known drug Allergies; - Home Meds: 1. Flomax Oral once daily 2. atorvastatin 80 mg oral tab 1 tab once daily 3. Lasix Oral once daily 4. Guaifenesin Oral 5. Hydrocodone-Acetaminophen 5-325 mg Oral Unknown 6. Metoprolol Tartrate Oral once daily 7. NTG SL Unknown 8. Potassium Chloride Oral Unknown 9. aspirin 81 mg oral tab 1 tab once daily 10. finasteride oral once daily 11. Magnesium Oxide Oral Unknown 12. tamsulosin oral once daily - PMHx: BPH; Myocardial Infarction - non ST elevation (February 17, 2017); Atrial Fibrillation (February 26, 2017); - PSHx: APPENDECTOMY; - Tetanus: < 10 years. - Ebola Screening: : No symptoms or risks identified at this time. . - Immunization history: Flu Vaccine < 1 year. - Social history: Smoking status: Patient states was never smoker of tobacco. ROS: 04:49 ENT: Negative for injury, pain, epistaxis and discharge. cd Neck: Negative for injury, pain, stiffness and swelling. Back: Negative for injury, pain or muscle spasms. : Negative for injury, bleeding, discharge, swelling, dysuria, frequency or urgency. MS/Extremity: Negative for injury, deformity, edema, calf tenderness, pain or coldness. Skin: Negative for injury, rash, itching and discoloration. 04:49 Neuro: Negative for headache, weakness, numbness, tingling, and seizure. cd 04:49 Constitutional: Negative for chills, fever, poor PO intake. 04:49 Cardiovascular: Positive for palpitations, Negative for chest pain, edema. 04:49 Respiratory: Positive for orthopnea, shortness of breath, Negative for cough, hemoptysis, wheezing. 04:49 Abdomen/GI: Negative for abdominal pain, nausea, vomiting, anorexia. 04:49 All other systems are negative. Exam: ENT: Nares patent. No nasal discharge, no septal abnormalities noted. Tympanic membranes are normal and external auditory canals are clear. Oropharynx with no redness, swelling, or masses, exudates, or evidence of obstruction, uvula midline. Mucous membranes moist. 04:49 Neck: Trachea midline, no thyromegaly or masses palpated, and no cervical cd lymphadenopathy. Supple, full range of motion without nuchal rigidity, or vertebral point tenderness. No Meningismus. Back: No spinal tenderness. No costovertebral tenderness. Full range of motion. Skin: Warm, dry with normal turgor. Normal color with no rashes, no lesions, and no evidence of cellulitis. 04:49 Neuro: Awake and alert, GCS 15, oriented to person, place, time, and situation. Cranial nerves II-XII grossly intact. Motor strength 5/5 in all extremities. Sensory grossly intact. Cerebellar exam normal. Normal gait. 04:49 Constitutional: The patient appears alert, awake, non-diaphoretic, non-toxic, well developed, well nourished, anxious. 04:49 Chest/axilla: Inspection: Mid sternal scar healing well, Palpation: is normal. 04:49 Cardiovascular: Rate: tachycardic, actual rate is 152 bpm, Rhythm: irregularly irregular, Pulses: no pulse deficits are appreciated, Heart sounds: normal, Edema: is not appreciated. 04:49 Respiratory: the patient does not display signs of respiratory distress, Respirations: normal, no acute changes, Breath sounds: rales, that are moderate, are located in both bases, rhonchi, are not appreciated, wheezing, is not appreciated, decreased breath sounds, that are moderate, are located in both bases. 04:49 Abdomen/GI: Inspection: abdomen appears normal, Bowel sounds: normal, active, Palpation: abdomen is soft and non-tender. 04:49 Musculoskeletal/extremity: Extremities: all appear grossly normal, with no appreciated pain with palpation, ROM: no acute changes, Circulation is intact in all extremities. Sensation intact. Scars healing Vital Signs: 04:21 Pulse Ox 89% ; mv 04:23 BP 105 / 76 (auto/); mv 04:26 Pulse 150 MON; Resp 32; Pulse Ox 95% ; mv 04:49 BP 130 / 82 (auto/); mv 04:51 Pulse 144 MON; Resp 23; Pulse Ox 95% ; mv 04:53 BP 108 / 87 (auto/); mv 04:56 Pulse 130 MON; Resp 23; Pulse Ox 91% ; mv 05:11 Pulse 130 MON; Resp 27; Pulse Ox 92% ; mv 05:17 BP 129 / 102 (auto/); mv 05:21 Pulse 128 MON; Resp 6; Pulse Ox 95% ; mv 05:22 BP 123 / 75 (auto/); mv Teresita Coma Score: 04:49 Eye Response: spontaneous(4). Verbal Response: oriented(5). Motor Response: obeys cd commands(6). Total: 15. MDM: 04:30 Data interpreted: Pulse oximetry: on room air is 85 %. Interpretation: hypoxia. Plan: cd O2 by NC applied. 04:35 Patient medically screened. cd 04:53 Differential diagnosis: arrythmia, Atrial Fibrillation, CHF, Pericardial effusion, cd Pneumonia. Data reviewed: vital signs, nurses notes, old medical records, EKG, radiologic studies, and as a result, I will *Transfer Patient give Lasix IV and Cardizem IV. 04:55 Test interpretation: by ED physician or midlevel provider: plain radiologic studies, cd CXR revealed Post CABG widened mediastinum and LLL infiltrate, recent sternotomy. ECG:. 04:56 Counseling: I had a detailed discussion with the patient and/or guardian regarding: the cd historical points, exam findings, and any diagnostic results supporting the discharge/admit diagnosis, radiology results, the need to transfer to another facility, for higher level of care, [facility]. 05:09 EKG attached mk4 05:12 Response to treatment: the patient's symptoms have markedly improved after treatment, cd and as a result, I will transfer the patient. Physician consultation: Maren Smiley MD was called at 04:58, was contacted at 05:05, regarding admission, to telemetry, consult, patient's condition, need to evaluate the patient as soon as possible, and will see patient in unit, shortly, later today, after a discussion of the case, a recommendation for transfer for higher level of care is made. 03/01 05:03 Order name: CBC AUTO DIF, MDIF/RMOR IF IND; Complete Time: 05:15 EDMS 03/01 05:14 Interpretation: Abnormal: WHITE BLOOD COUNT 13.1; HEMOGLOBIN 12.6; HEMATOCRIT 36.7; PLATELET COUNT 447; Thrombocytosis, Anemia, Elevated WBC. 03/01 05:03 Order name: PROTIME/INR; Complete Time: 05:15 EDMS 03/01 05:14 Interpretation: Normal. 03/01 05:04 Order name: BASIC METABOLIC PANEL; Complete Time: 05:15 EDMS 03/01 05:14 Interpretation: Normal Except: CARBON DIOXIDE 21. 03/01 05:04 Order name: MAGNESIUM; Complete Time: 05:15 EDMS 03/01 05:14 Interpretation: Normal. 03/01 05:13 Order name: TROPONIN I; Complete Time: 05:15 EDMS 03/01 05:14 Interpretation: Normal. cd 03/01 06:03 Order name: BNP,NT-PRO EDMS 03/02 08:59 Order name: CHEST; SINGLE VIEW [id number] EDMS 03/01 04:35 Order name: 12-lead EKG; Complete Time: 05:38 cd 03/01 04:35 Order name: Iv Saline Lock; Complete Time: 05:38 cd 03/01 04:35 Order name: Place Patient On Monitor; Complete Time: 05: cd 03/01 04:35 Order name: Pulse Ox Continuous; Complete Time: : cd 03/01 04:35 Order name: Oxygen; Complete Time: 05:38 cd EC:25 Rate is 157 beats/min. Rhythm is irregularly irregular. QRS [place] is Normal. QRS cd interval is normal. QT interval is normal. Q waves are Present. Q waves are Old in leads III, aVF. T waves are Normal. ST Segment is elevated in lead III. Clinical impression: Anterior HI - age indeterminate, Atrial Fibrillation, and Inferior HI - age indeterminate. Interpreted by me. Dispensed Medications: 04:40 Drug: Lasix 20 mg; Route: IVP; Rate: 20 bolus; Infused Over: 5 mins; Site: right mk4 forearm; 05:48 Follow up: Response: No adverse reaction mk4 04:50 Drug: Cardizem 20 mg; Route: IVP; Rate: 20 bolus; Infused Over: 5 mins; Site: right mk4 antecubital; 05:49 Follow up: Response: No adverse reaction mk4 05:49 Drug: Cardizem 10 mg/hr; Volume: 10 ml; Route: IV; Rate: calculated rate; Infused Over: mk4 10 continuous; Site: right antecubital; Delivery: Pump; 05:52 Follow up: Response: No adverse reaction mk4 Signatures: Hector Murphy MD MD cd [place], Melody [facility]
--- NOTE | 2017-03-01 06:06 | ER NURSING DOCUMENTATION ---
Nurse's Notes [facility] Name:Wolfgang Bishop Age:61 yrs Sex:Male :1955 Arrival Date:03/01/2017 Time:04:20 BedTrauma-C Private MD:Russell Graff Diagnosis:Atrial Fibrillation with Rapid Ventricular Response;Pneumonia Bacterial-: LLL;Hypoxia Presentation: 03/01 04:25 Presenting complaint: Patient states: Recent CABG x 5 . Tonight felt " heart racing and mk4 short of breath ". Denies CP. Transition of care: Home. Notified ED Physician of Dr. Murphy notified. 04:25 Method Of Arrival: Walk In [facility] 04:34 Acuity: ARELIS 2 4 Triage Assessment: 05:17 General: Appears in no apparent distress, Behavior is cooperative. Pain: Denies pain. mk4 EENT: No deficits noted. Neuro: Level of Consciousness is awake, Oriented to person, place. Cardiovascular: Capillary refill < 3 seconds. Respiratory: Airway is patent Trachea midline Respiratory effort is even, unlabored, Respiratory pattern is regular, symmetrical, Breath sounds with crackles bilaterally. GI: No deficits noted. : No deficits noted. Derm: No deficits noted. Musculoskeletal: No deficits noted. Historical: - Allergies: No known drug Allergies; - Home Meds: 1. Flomax Oral once daily 2. atorvastatin 80 mg oral tab 1 tab once daily 3. Lasix Oral once daily 4. Guaifenesin Oral 5. Hydrocodone-Acetaminophen 5-325 mg Oral Unknown 6. Metoprolol Tartrate Oral once daily 7. NTG SL Unknown 8. Potassium Chloride Oral Unknown 9. aspirin 81 mg oral tab 1 tab once daily 10. finasteride oral once daily 11. Magnesium Oxide Oral Unknown 12. tamsulosin oral once daily - PMHx: BPH; Myocardial Infarction - non ST elevation (February 17, 2017); Atrial Fibrillation (February 26, 2017); - PSHx: APPENDECTOMY; - Tetanus: < 10 years. - Ebola Screening: : No symptoms or risks identified at this time. . - Immunization history: Flu Vaccine < 1 year. - Social history: Smoking status: Patient states was never smoker of tobacco. Screenin:30 Infectious Disease Risk None. Abuse screen: Denies threats or abuse. Nutritional 4 screening: No deficits noted. Assessment: 04:40 See Triage Assessment done by same RN. mk4 Vital Signs: 04:21 Pulse Ox 89% ; mv 04:23 BP 105 / 76 (auto/); mv 04:26 Pulse 150 MON; Resp 32; Pulse Ox 95% ; mv 04:49 BP 130 / 82 (auto/); mv 04:51 Pulse 144 MON; Resp 23; Pulse Ox 95% ; mv 04:53 BP 108 / 87 (auto/); mv 04:56 Pulse 130 MON; Resp 23; Pulse Ox 91% ; mv 05:11 Pulse 130 MON; Resp 27; Pulse Ox 92% ; mv 05:17 BP 129 / 102 (auto/); mv 05:21 Pulse 128 MON; Resp 6; Pulse Ox 95% ; mv 05:22 BP 123 / 75 (auto/); mv Teresita Coma Score: 04:49 Eye Response: spontaneous(4). Verbal Response: oriented(5). Motor Response: obeys cd commands(6). Total: 15. ED Course: 04:21 Patient arrived in ED. em2 04:21 Russell Graff DO is Private Physician. em2 04:25 Virginia Pate is Primary Nurse. mk4 04:30 Arm band placed on Bed in low position Call Light in Reach Gowned HOB Elevated Side mk4 rails up x2. EKG done per protocol. Performed by ED Staff. Labs ordered per protocol. Drawn by ED staff. X-ray done. 04:34 Triage completed. mk4 04:34 Hector Murphy MD is Attending Physician. cd 04:36 Inserted saline lock: 20 gauge in right antecubital area and blood collected. em1 04:37 Port Xray Completed. mr 04:40 Oxygen Oxygen administration via nasal cannula @ 4L/min. mk4 05:09 EKG attached mk4 05:26 Valuables Remains with patient. Cardiac Monitoring On for Nurse Monitoring only. Pulse mk4 Ox - RN Monitoring Only NIBP On - RN Monitoring Only. Administered Medications: 04:40 Drug: Lasix 20 mg; Route: IVP; Rate: 20 bolus; Infused Over: 5 mins; Site: right mk4 forearm; 05:48 Follow up: Response: No adverse reaction mk4 04:50 Drug: Cardizem 20 mg; Route: IVP; Rate: 20 bolus; Infused Over: 5 mins; Site: right mk4 antecubital; 05:49 Follow up: Response: No adverse reaction [facility] 05:49 Drug: Cardizem 10 mg/hr; Volume: 10 ml; Route: IV; Rate: calculated rate; Infused Over: mk4 10 continuous; Site: right antecubital; Delivery: Pump; 05:52 Follow up: Response: No adverse reaction 4 Output: 05:35 Urine: 350ml (Voided); Total: 350ml. mv Outcome: 05:11 ER care complete, transfer ordered by . enedelia 05:26 Admitted to [place] [id number] 05:26 [facility] mk Acceptance Time: March 01, 2017 at 05:26 Patient's face sheet was faxed to accepting facility. Face Sheet included patient's name, address, age, gender, contact information and insurance information. Patient will be transported by: Report called to: sheet folder Nurse and Physician Charting and Notes were sent to Accepting Facility. All tests and/or procedures with results, if applicable, were sent to accepting facility. 05:26 Condition: stable 05:55 Report given to Marques CAMILO [facility] 06:05 Patient left the ED. [facility] Signatures: Hector Murphy MD MD cd [employer], [employer] em1 Meied[facility]-reg, [employer]reg em2 Virginia Pate 4 [place] [facility] m[facility]
[2017-03-01] MEDS ORDERED: FENTANYL 100 MCG/2 ML VIAL ONE (09:14)
--- NOTE | 2017-03-02 08:32 | RADIOLOGY REPORT ---
A limited single portable view of the chest is compared with prior examination dated 02/26/17. Again noted are postoperative changes. Heart and vessels are stable. There has been interval partial clearing of the left lung base. No new abnormality is identified. IMPRESSION: Partial clearing of the left lung base. MTDD
== END 2017-03-01 06:06 | disposition short-term general hospital (02) ==
LOC: ER 04:20
DX: I48.91 Unspecified atrial fibrillation (principal); J15.9 Unspecified bacterial pneumonia; R09.02 Hypoxemia; Z95.1 Presence of aortocoronary bypass graft; R06.02 Shortness of breath; R06.01 Orthopnea; R91.8 Other nonspecific abnormal finding of lung field; D64.9 Anemia, unspecified; D47.3 Essential (hemorrhagic) thrombocythemia; D72.829 Elevated white blood cell count, unspecified; Z79.82 Long term (current) use of aspirin; Z79.899 Other long term (current) drug therapy; Z99.89 Dependence on other enabling machines and devices; Z99.81 Dependence on supplemental oxygen; Z74.3 Need for continuous supervision
CPT/HCPCS: 71010; 80048; 83735; 83880; 84484; 85025; 85610; 93005; 96374; 96375; 96376; 99285; A0425; A0427; J1940; J3010